=== PATIENT | female | born 1980 | race Caucasian/White ===

== ENCOUNTER 2021-06-11 09:45 | Inpatient (IN) | payer OTHER ==
[~2021-06-11] VITALS: Ht 160 cm; Wt 60.5 kg
[2021-06-11] MEDS ORDERED: CALCIUM GLUCONATE 1,000 MG/10 ML VIAL IV ONE ×2 (11:15→13:15)
[2021-06-11 11:38] LABS: BASO # 0.1 x10^3/uL (0.0-0.2); BASO % 1 % (0-3); EOS # 0.1 x10^3/uL (0.0-0.7); EOS % 1 % (0-3); HEMATOCRIT 44.4 % (36.0-47.0); HEMOGLOBIN 14.8 g/dL (12.0-15.5); LYMPH % 17 % (24-48); MEAN CORPUSCULAR HEMOGLOBIN 29 pg (25-35); MEAN CORPUSCULAR HGB CONC 33 g/dL (31-37); MEAN CORPUSCULAR VOLUME 88 fL (79-100); MONO # 1.3 x10^3/uL (0.0-1.1); MONO % 11 % (0-9); NEUT # 8.6 x10^3uL (1.8-7.7); NEUT % 71 % (31-73); PLATELET COUNT 328 x10^3/uL (140-400); RED BLOOD COUNT 5.04 x10^6/uL (3.50-5.40); RED CELL DISTRIBUTION WIDTH 15.5 % (11.5-14.5)
[2021-06-11 11:41] LABS: CALCIUM 6.2 mg/dL (8.5-10.1); CREATININE 0.8 mg/dL (0.6-1.0); GFR 78.7; POTASSIUM 3.7 mmol/L (3.5-5.1)
--- NOTE | 2021-06-11 12:28 | PHYS DOC ---
Past History Past Medical History: No Pertinent History (YIN NESS APRN) Past Surgical History: Other Additional Past Surgical Histo: THYROIDECTOMY (YIN NESS APRN) Alcohol Use: None (YIN NESS APRN) General Adult EDM: Chief Complaint: WEAKNESS/GENERALIZED HPI: HPI: Patient is a 40-year-old female that came in today with complaint of tetany. Most of the history is obtained from the patient is unable to talk due to tetany. Further about 10 to 12 weeks ago patient had her thyroid removed in [place] where he was stationed at, he says over the holidays they transferred here and she has not yet established primary care she said the last 3 days she has had complaint of muscle aches and pains today the pains got worse she has been unable to move her hands and has been decreased talking due to tetany. states that after the thyroidectomy patient was having problems with her calcium levels in [place] she was placed on levothyroxine 100 mcg daily and placed on calcium 1300 mg 3 times a day. He said they did call the [facility] they were unable to get in until tomorrow morning which is then when he decided to bring the patient to the emergency department. (YIN NESS APRN) Review of Systems: Review of Systems: Constitutional: Denies fever or chills Eyes: Denies change in visual acuity HENT: Denies nasal congestion or sore throat Respiratory: Denies cough or shortness of breath Cardiovascular: Denies chest pain or edema GI: Denies abdominal pain, nausea, vomiting, bloody stools or diarrhea : Denies dysuria Musculoskeletal: body aches Integument: Denies rash Neurologic: hands contracted Endocrine: Denies polyuria or polydipsia Lymphatic: Denies swollen glands Psychiatric: Denies depression or anxiety (YIN NESS APRN) Current Medications: Current Meds: Current Medications Medications (Trade) Dose Ordered Sig/Kimberlee Start Time Stop Time Status Last Admin Dose Admin Calcium Gluconate (Calcium Gluconate) 2,000 mg 1X ONCE 06/11/21 11:15 06/11/21 11:21 DC 06/11/21 11:15 2,000 MG Lorazepam (Ativan Inj) 2 mg 1X ONCE 06/11/21 11:45 06/11/21 11:48 DC 06/11/21 11:45 2 MG (YIN NESS EXHIBIT SPECIALIST) Allergies: Allergies: Allergies Coded Allergies Type Severity Reaction Last Updated Verified No Known Drug Allergies 06/11/21 No (YIN NESS APRN) Physical Exam: PE: Constitutional: Well developed, well nourished, moderate distress, non-toxic appearance. [] HENT: Chvostek sign positive, parastesia noted on face Eyes: PERRLA, EOMI, conjunctiva normal, no discharge. [] Neck: Normal range of motion, no tenderness, supple, no stridor. [] Cardiovascular:Heart rate regular rhythm, no murmur [] Lungs & Thorax: Bilateral breath sounds clear to auscultation, no increase work of breathing noted, airway patent. Abdomen: Bowel sounds normal, soft, no tenderness, no masses, no pulsatile masses. [] Skin: Warm, dry, no erythema, no rash. [] Back: No tenderness, no CVA tenderness. [] Extremities: Trousseau sign noted Neurologic: Alert and oriented X 3, normal motor function, normal sensory function, no focal deficits noted. [] Psychologic: anxious (YIN NESS APRN) Current Patient Data: Labs: Laboratory Tests Test 06/11/21 11:10 06/11/21 11:12 White Blood Count 12.0 x10^3/uL (4.0-11.0) H Red Blood Count 5.04 x10^6/uL (3.50-5.40) Hemoglobin 14.8 g/dL (12.0-15.5) Hematocrit 44.4 % (36.0-47.0) Mean Corpuscular Volume 88 fL (79-100) Mean Corpuscular Hemoglobin 29 pg (25-35) Mean Corpuscular Hemoglobin Concent 33 g/dL (31-37) Red Cell Distribution Width 15.5 % (11.5-14.5) H Platelet Count 328 x10^3/uL (140-400) Neutrophils (%) (Auto) 71 % (31-73) Lymphocytes (%) (Auto) 17 % (24-48) L Monocytes (%) (Auto) 11 % (0-9) H Eosinophils (%) (Auto) 1 % (0-3) Basophils (%) (Auto) 1 % (0-3) Neutrophils # (Auto) 8.6 x10^3uL (1.8-7.7) H Lymphocytes # (Auto) 2.0 x10^3/uL (1.0-4.8) Monocytes # (Auto) 1.3 x10^3/uL (0.0-1.1) H Eosinophils # (Auto) 0.1 x10^3/uL (0.0-0.7) Basophils # (Auto) 0.1 x10^3/uL (0.0-0.2) Sodium Level 136 mmol/L (136-145) Potassium Level 3.7 mmol/L (3.5-5.1) Chloride Level 99 mmol/L (98-107) Carbon Dioxide Level 22 mmol/L (21-32) Anion Gap 15 (6-14) H Blood Urea Nitrogen 12 mg/dL (7-20) Creatinine 0.8 mg/dL (0.6-1.0) Estimated GFR (Cockcroft-Gault) 78.7 Glucose Level 98 mg/dL (70-99) Calcium Level 6.2 mg/dL (8.5-10.1) L Magnesium Level 2.0 mg/dL (1.8-2.4) Phosphorus Level 2.4 mg/dL (2.6-4.7) L Vital Signs: Vital Signs Date Time Temp Pulse Resp B/P (MAP) Pulse Ox O2 Delivery O2 Flow Rate FiO2 06/11/21 12:32 75 16 123/71 (88) 97 Room Air 06/11/21 10:05 98.9 54 18 129/59 (82) 97 Room Air Vital Signs Date Time Temp Pulse Resp B/P (MAP) Pulse Ox O2 Delivery O2 Flow Rate FiO2 06/11/21 10:05 98.9 54 18 129/59 (82) 97 Room Air (YIN NESS APRN) EKG: EKG: EKG done at [address] Matos at 1014 heart rate of 95 no STEMI prolonged QT noted at 477 ms with a HI interval of 86. Sinus rhythm [] (YIN NESS APRN) Radiology/Procedures: Radiology/Procedures: [] (YIN NESS APRN) Heart Score: C/O Chest Pain: N/A Risk Factors: Risk Factors: DM, Current or recent (<one month) smoker, HTN, HLP, family history of CAD, obesity. Risk Scores: Score 0 - 3: 2.5% MACE over next 6 weeks - Discharge Home Score 4 - 6: 20.3% MACE over next 6 weeks - Admit for Clinical Observation Score 7 - 10: 72.7% MACE over next 6 weeks - Early Invasive Strategies (YIN NESS APRN) Course & Med Decision Making: Course & Med Decision Making Pertinent Labs and Imaging studies reviewed. (See chart for details) 1225 reassessment of patient shows that her tetany has relax some patient is able to walk with baby steps with assistance x1 to the restroom. We will continue to monitor. 1300 reviewed labs, consult to Dr. Rico and management of this patient he is agreeable to admission overnight for further administration of calcium and vitamin D to correct the calcium deficiency. 1315 reassessment of patient patient is sitting up in her bed, complaining of body aches in her hands and feet, states she feels much better able to hold a conversation, tetany has resolved. Vital signs are stable patient is agreeable to admission for further management of her low calcium. Admission orders written. (YIN NESS APRN) Dragon Disclaimer: Dragon Disclaimer: This electronic medical record was generated, in whole or in part, using a voice recognition dictation system. (YIN NESS APRN) Attending Co-Sign The patient was seen and interviewed as well as examined at the bedside. The chart was reviewed. The case was discussed. Agree with the plan of care. (JAQUELIN MATOS DO) Departure Departure: Impression: Primary Impression: Hypocalcemia Disposition: ADMITTED INPATIENT Admitting Physician: Sundeep Robb (YIN NESS APRN) Condition: STABLE Referrals: MECHE POLANCO DO (PCP) YIN NESS APRN Jun 11, 2021 12:28 JAQUELIN MATOS DO Jun 12, 2021 06:31
[2021-06-11 12:38] LABS: ALBUMIN 4.4 g/dL (3.4-5.0); DIRECT BILIRUBIN 0.2 mg/dL (0.0-0.2); TOTAL BILIRUBIN 0.8 mg/dL (0.2-1.0); TOTAL PROTEIN 7.8 g/dL (6.4-8.2)
[2021-06-11] MEDS ORDERED: CHOLECALCIFEROL (VITAMIN D3) 50,000 UNIT CAPSULE PO STA (13:27)
[2021-06-11] MEDS ORDERED: CALCIUM CARBONATE 500 MG TABLET PO SCH ×2 (18:00→21:30)
[2021-06-11 19:49] LABS: INFLUENZA A PATIENT NEGATIVE (NEGATIVE); INFLUENZA B PATIENT NEGATIVE (NEGATIVE)
--- NOTE | 2021-06-11 20:00 | NUR ---
Pt admitted from ER to [facility] room 117 via [facility] accompanied by EMS and nursing staff. Pt transferred independently from rney to bed, steady gait noted. Pt here for c/o low calcium and tetany. Pt stated that she had a total thyroidectomy in March 2021 in [place] and has been struggling with her Calcium levels ever since. Pt and family just recently moved here from [place] and in the process of setting up a PCP. Pt had an MD appointment set up tomorrow at [facility] to be seen but started having tetany and could not wait. Admission assessment completed. Pt A&Ox4, very pleasant and able to answer questions appropriately. Pt placed on Telemetry, SR noted on monitor. Health history and home medications reviewed with pt. Pt lives at home with and family. SCDs for VTE. Pt is UTD on Flu & Covid vacine (x3). POC reviewed with pt, understanding verbalized. Dr Robb called for admit orders.
[2021-06-11 20:08] VITALS: BP 123/76
[2021-06-11] MEDS ORDERED: [UNRECOGNIZED DRUG - CODE] PO (21:00)
[2021-06-11] MEDS ORDERED: CALC250T PO (21:00)
[2021-06-11 21:18] LABS: ALBUMIN 3.6 g/dL (3.4-5.0); ALBUMIN/GLOBULIN RATIO 0.9 (1.0-1.7); CALCIUM 6.8 mg/dL (8.5-10.1); CREATININE 0.8 mg/dL (0.6-1.0); GFR 78.7; POTASSIUM 3.6 mmol/L (3.5-5.1); TOTAL BILIRUBIN 0.6 mg/dL (0.2-1.0); TOTAL PROTEIN 7.4 g/dL (6.4-8.2)
[2021-06-11] MEDS ORDERED: [UNRECOGNIZED DRUG - CODE] PO (21:31)
[2021-06-11] MEDS: ONDANSETRON PF 4 MG/2 ML VIAL. IVP PRN (21:44)
[2021-06-11] MEDS: CALCIUM CARBONATE 500 MG TABLET PO SCH (21:44)
--- NOTE | 2021-06-12 04:50 | EKG ---
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
[2021-06-12] MEDS: LEVOTHYROXINE 100 MCG TABLET PO SCH (05:32)
[2021-06-12 05:40] VITALS: BP 120/70
[2021-06-12 06:28] LABS: BASO % 0 % (0-3); EOS # 0.1 x10^3/uL (0.0-0.7); EOS % 2 % (0-3); HEMATOCRIT 40.8 % (36.0-47.0); HEMOGLOBIN 13.8 g/dL (12.0-15.5); LYMPH # 1.6 x10^3/uL (1.0-4.8); LYMPH % 21 % (24-48); MEAN CORPUSCULAR HEMOGLOBIN 30 pg (25-35); MEAN CORPUSCULAR HGB CONC 34 g/dL (31-37); MEAN CORPUSCULAR VOLUME 88 fL (79-100); MONO # 0.9 x10^3/uL (0.0-1.1); MONO % 11 % (0-9); NEUT # 5.2 x10^3uL (1.8-7.7); NEUT % 66 % (31-73); PLATELET COUNT 264 x10^3/uL (140-400); RED BLOOD COUNT 4.62 x10^6/uL (3.50-5.40); RED CELL DISTRIBUTION WIDTH 15.4 % (11.5-14.5); WHITE BLOOD COUNT 7.9 x10^3/uL (4.0-11.0)
[2021-06-12 06:42] LABS: ALBUMIN 3.6 g/dL (3.4-5.0); ALBUMIN/GLOBULIN RATIO 1.2 (1.0-1.7); CREATININE 0.8 mg/dL (0.6-1.0); GFR 78.7; TOTAL BILIRUBIN 0.9 mg/dL (0.2-1.0); TOTAL PROTEIN 6.5 g/dL (6.4-8.2)
[2021-06-12 06:59] LABS: CALCIUM 5.8 mg/dL (8.5-10.1)
[2021-06-12] MEDS ORDERED: CALCIUM GLUCONATE 1,000 MG/10 ML VIAL IV ONE (07:15)
[2021-06-12] MEDS ORDERED: CALCIUM GLUCONATE 2,000 MG in IV NORMAL SALINE 100ML 100 ML IV ONE (08:00)
[2021-06-12] MEDS: CHOLECALCIFEROL (VITAMIN D3) 1,000 UNIT TABLET PO SCH (08:37)
[2021-06-12] MEDS: CALCIUM CARBONATE 500 MG TABLET PO SCH ×4 (08:41→20:20)
[2021-06-12 11:00] VITALS: BP 116/73
--- NOTE | 2021-06-12 12:53 | HP ---
DATE OF SERVICE: 06/12/2021 ADMIT DATE: 06/11/2021 HISTORY OF PRESENT ILLNESS: The patient is a 40-year-old female patient who presented to the Emergency Room with a complaint of tetany. Most of the history, apparently was obtained from the as the patient was unable to talk due to tetany. stated that about 10-12 weeks ago, according to the patient, specifically on 03/26, she has had her thyroid removed in [place] where he was stationed at. She stated that she felt some symptoms after surgery and she was started by her surgeon on calcium citrate as well as calcitriol. The last measurement of her calcium was done on 05/06/2021. At that time, the serum calcium was 7.3. She took her last dose of calcitriol on 06/03 and since then, she started complaining of muscle aches and pains and the pains got worse as she has been unable to move her hands and has also a spasm with every movement. The stated that after the thyroidectomy, the patient was having problems with her calcium level in the [place] and she was placed on levothyroxine 100 mcg once a day as well as calcium citrate 1300 mg 3 times a day. They did call [facility] and they were unable to get in until 06/24; however, she became symptomatic and therefore, the patient came to the Emergency Department. On arrival, the patient apparently had evidence of tetany with tingling and numbness and muscle spasm according to her; however, she was extensively investigated and has lab work including a CBC and a CMP. Her serum calcium on arrival was 5.8 mg/dL. The patient was given multiple infusions of calcium gluconate and was started on vitamin D as well as calcium carbonate and was admitted for further evaluation and treatment. PAST MEDICAL HISTORY: Significant for Graves disease for which she was treated symptomatically with beta blockers and had had surgery on 03/26/2021. From what I gather, she has never been on any antithyroid medication. PAST SURGICAL HISTORY: Significant for thyroidectomy, hand surgery and breast augmentation surgery in 2009. ALLERGIES: She has no known drug allergies. MEDICATIONS: The patient was on calcitriol 0.5 mcg once a day and calcium citrate 1300 mg 3 times a day and levothyroxine 100 mcg once a day. FAMILY HISTORY: She has one brother older and still alive and healthy. Father at the age of 62 because of lung cancer. Mother is still alive in her 70s. SOCIAL HISTORY: She is , has a son and a daughter. She never smoked. Drinks alcohol occasionally. Does not use any drugs. 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 She is now devoted to her son. REVIEW OF SYSTEMS: The patient denied any blurring of vision, cataracts, glaucoma or macular degeneration. Denied any earache, tinnitus or sensorineural deafness. Denied any nosebleed, stuffy nose or postnasal drip. Denied any sore throat, sore tongue, toothache, hoarseness of voice or difficulty swallowing. Denied any nausea, vomiting, diarrhea or constipation. Denied any hematemesis, melena or hematochezia. Denied any dysuria, frequency or hematuria. She denied any chest pain, shortness of breath, orthopnea, paroxysmal nocturnal dyspnea. Denied any cough, phlegm or hemoptysis. PHYSICAL EXAMINATION: GENERAL: On arrival to the Emergency Room, she looked well and was clearly in no apparent respiratory distress. There was no pallor, jaundice, cyanosis. No lymphadenopathy, no thyromegaly, no jugular venous distention. No lower limb edema. VITAL SIGNS: Her heart rate on arrival was 54, blood pressure was 129/59, temperature was 98.9, respiratory rate was 18 and oxygen saturation was 97%. HEAD, EYES, EARS, NOSE, AND THROAT: Normocephalic, atraumatic. NECK: Supple. HEART: Showed normal first and second heart sounds. No gallop, rub or murmur. CHEST: Clear to auscultation, no crepitation or rhonchi. ABDOMEN: Distended, soft, nontender. NEUROLOGIC: She was grossly intact. LABORATORY DATA: Her lab works on arrival showed a white cell count of 12,000, hemoglobin 14.8, hematocrit 44, MCV 88 and platelet count of 328,000 with normal manual differential. Her serum sodium was 136, potassium 3.7, chloride 99, bicarbonate 22, anion gap of 12, BUN 12, creatinine 0.8. Estimated GFR was 78 mL per minute. Her glucose was 98, calcium was 6.2 and magnesium was 2. Her coronavirus by PCR was negative as well as her influenza A and B. ASSESSMENT AND PLAN: The patient was admitted with severe hypocalcemia. She was given multiple doses of calcium gluconate and also started on vitamin D and oral calcium carbonate. We will monitor her response and once her calcium stabilized, we will obviously send her on a maintenance dose of calcium and vitamin D. I also checked her T3, T4, free T4 and TSH as well as intact parathyroid hormone. VLADISLAV DR: Bharat TID: [id number]
[2021-06-12] MEDS ORDERED: DEXTROSE 5% IV SCH (13:00)
[2021-06-12] MEDS ORDERED: CALCIUM GLUCONATE IV SCH (13:00)
[2021-06-12] MEDS ORDERED: CALCIUM GLUCONATE IV ONE (13:30)
[2021-06-12] MEDS ORDERED: DEXTROSE 5% IV ONE (13:30)
[2021-06-12] MEDS ORDERED: ACETAMINOPHEN 325 MG TABLET PO PRN (16:30)
[2021-06-12 17:24] VITALS: BP 122/73
--- NOTE | 2021-06-12 18:00 | NUR ---
Shift nursing note: Patient alert and oriented x 4, pleasant, cooperative, with stable vital signs. She has cramps at hands and feet, able to take rest between ADL activities. Patient independent on ADLs. Patient has been receiving IV calcium for hypocalcemia, on tele monitor, NSR, no complication noted. Will continue to monitor her condition.
[2021-06-12 19:37] VITALS: BP 134/86
[2021-06-12] MEDS: ONDANSETRON PF 4 MG/2 ML VIAL. IVP PRN (20:20)
[2021-06-12 22:32] VITALS: BP 107/64
--- NOTE | 2021-06-13 00:13 | PN ---
DATE: 06/12/2021 SUBJECTIVE: The patient is resting, slightly propped up in bed, in no apparent respiratory distress. She is awake, alert. On questioning her, she stated that she is generally feeling much better. She has no more spasm. No more tingling or numbness. PHYSICAL EXAMINATION: GENERAL: When I examined her, she looked well and was clearly in no apparent respiratory distress. No pallor, jaundice, cyanosis, or thyromegaly. No jugular venous distention. No limb edema. VITAL SIGNS: Her heart rate was 81, blood pressure was 120/70, temperature was 98.2, respiratory rate was 18 and oxygen saturation was 95%. HEAD, EYES, EARS, NOSE AND THROAT: Normocephalic, atraumatic. NECK: Supple. HEART: Showed normal first and second heart sounds. No gallop, rub or murmur. CHEST: Clear to auscultation, no crepitation or rhonchi. ABDOMEN: Scaphoid, soft, nontender. NEUROLOGIC: She was grossly intact. LABORATORY DATA: The lab work this morning showed white cell count to be 7900, hemoglobin 13.8, hematocrit 40.1, MCV 88 and platelet count 264,000 with normal manual differential. Her chemistry this morning showed a serum sodium of 138, potassium 4, chloride 101, bicarbonate 26, anion gap of 11, BUN 11, creatinine 0.8, estimated GFR was 78 mL per minute. Her glucose was 97. Calcium was 5.8 and her total bilirubin, AST, ALT, alkaline phosphatase were normal. Total protein 6.5, albumin 3.6. Her total T3 was 86. Her TSH and intact parathyroid hormone still pending at the time of this dictation. POLA/VU DR: Bharat TID: [id number]
[2021-06-13 05:49] VITALS: BP 111/69
[2021-06-13] MEDS: LEVOTHYROXINE 100 MCG TABLET PO SCH (05:52)
[2021-06-13] MEDS ORDERED: LEVOTHYROXINE 100 MCG TABLET PO SCH (06:00)
[2021-06-13 07:11] LABS: ALBUMIN/GLOBULIN RATIO 1.2 (1.0-1.7); CALCIUM 10.5 mg/dL (8.5-10.1); CREATININE 0.8 mg/dL (0.6-1.0); GFR 78.7; POTASSIUM 4.1 mmol/L (3.5-5.1); TOTAL BILIRUBIN 0.7 mg/dL (0.2-1.0); TOTAL PROTEIN 7.3 g/dL (6.4-8.2)
[2021-06-13] MEDS: CALCIUM CARBONATE 500 MG TABLET PO SCH ×2 (07:46→13:43)
[2021-06-13] MEDS: CHOLECALCIFEROL (VITAMIN D3) 1,000 UNIT TABLET PO SCH (07:46)
[2021-06-13 10:12] LABS: CALCIUM PTH 7.2 mg/dL (8.7-10.2); CREATININE PTH 0.81 mg/dL (0.57-1.00); PTH INTACT 12 pg/mL (15-65)
[2021-06-13 12:05] VITALS: BP 110/71
[2021-06-13] MEDS ORDERED: CALC667T4 PO (13:23)
[2021-06-13] MEDS ORDERED: CALC0.5C8 PO (13:23)
--- NOTE | 2021-06-13 14:04 | NUR ---
PT DISCHARGED HOME. PT IV AND HEART MONITOR D/C'D. PT LEFT WITH BELONGINGS AND DISCHARGE PAPERWORK, ALONG WITH HANDWRITTEN PRESCRIPTIONS. PT PICKED HER UP. PT ESCORTED TO THE FRONT BY STAFF.
--- NOTE | 2021-06-14 07:32 | DS ---
DATE OF DISCHARGE: 06/13/2021 HOSPITAL COURSE: The patient is a 40-year-old female patient who was admitted with symptomatic hypocalcemia. She underwent thyroidectomy for thyrotoxicosis secondary to Graves' disease, after which she developed hypocalcemia, for which she was on calcium acetate as well as calcitriol. She apparently ran out of her calcitriol on 05/03 and was admitted through the Emergency Room, where she was treated with multiple boluses of calcium gluconate; however, her calcium continued to be low, so we started her on continuous infusion of calcium gluconate by mixing 10 grams of calcium gluconate in a liter of D5 to go over 10 hours together with oral calcium carbonate as well as cholecalciferol. When I saw her this morning, she looked well and was clearly in no apparent respiratory distress. Questioning her, denied any complaint. Nursing staff did not voice any concern. PHYSICAL EXAMINATION: GENERAL: On examining her, she looked well and was clearly in no apparent distress. There was no pallor, jaundice, cyanosis or thyromegaly. No jugular venous distention. No lower limb edema. VITAL SIGNS: Her heart rate was 73, blood pressure was 110/71, temperature was 98, respiratory rate was 18, and oxygen saturation was 94% on room air. HEAD, EYES, EARS, NOSE, AND THROAT: Showed normocephalic, atraumatic. NECK: Supple. HEART: Showed normal first and second heart sounds with no gallop, rub or murmur. CHEST: Clear to auscultation. No crepitation or rhonchi. ABDOMEN: Distended, soft, nontender. NEUROLOGIC: She was grossly intact. LABORATORY DATA: Her lab work this morning showed a serum sodium 138, potassium 4.1, chloride 100, bicarbonate 28, anion gap of 10, BUN 11, creatinine 0.8. Estimated GFR was 78 mL per minute. Her glucose was 107, calcium was 10.5. Total bilirubin, AST, ALT, alkaline phosphatase were normal. Total protein 7.3, albumin was 4. Her intact PTH was 12, calcium was 7.2 and phosphorus was 4.6. Her TSH was low at 0.145. Her free T4 was 1.43, free T3 was 1.97 and total T3 was 86, indicating that she is clinically euthyroid. DISCHARGE MEDICATIONS: The patient was discharged home to continue on calcitriol 1 mcg daily and calcium acetate 667 mg, take 1300 mg 3 times a day in between meals. She should obviously follow with her primary care physician at the [facility]. FINAL DISCHARGE DIAGNOSES: Symptomatic hypocalcemia, hypoparathyroidism, Graves' disease with thyrotoxicosis status post total thyroidectomy for which she is now on Synthroid 100 mcg daily. She is both clinically and biochemically euthyroid. MICKEY/DWAIN DR: Bharat TID: [id number]
== END 2021-06-13 14:05 | disposition home or self-care (01) | DRG 641 ==
LOC: ER 09:45 → ER HOLD 13:13 → 1 SOUTH 18:56 → OBSVTOIN 20:00
PROVIDERS: ADMIT Internal Medicine; ATTEND Internal Medicine
DX: E83.51 Hypocalcemia (principal); Z79.890 Hormone replacement therapy; Z80.1 Family history of malignant neoplasm of trachea, bronchus and lung; Z20.822 Contact with and (suspected) exposure to COVID-19
CPT/HCPCS: 36415; 80048; 80053; 80076; 82330; 83735; 83970; 84100; 84439; 84443; 84480; 84481; 85025; 93005; 96374; 96375; 96376; G0378; G0379; J0610; J2060; J2405; U0003; 99285-25